=== PATIENT | female | born 1945 | race Caucasian/White ===

== ENCOUNTER 2019-02-18 00:22 | Inpatient (IN) | payer OTHER ==
[~2019-02-18] VITALS: Ht 170.2 cm; Wt 111.8 kg
[2019-02-18] VITALS (7 sets, daily range): BP systolic 135–153; BP diastolic 63–76
[2019-02-18 00:49] LABS: BASOPHILS % (AUTO) 0 % (0-10); EOSINOPHILS # (AUTO) 0.3 10^3/uL (0.0-0.3); EOSINOPHILS % (AUTO) 5 % (0-10); HEMATOCRIT 34 % (35-52); LYMPHOCYTES # (AUTO) 1.1 X 10^3 (1.0-4.0); LYMPHOCYTES % (AUTO) 17 % (12-44); MEAN CORPUSCULAR HEMOGLOBIN 30 PG (25-34); MEAN CORPUSCULAR HGB CONC 32 G/DL (32-36); MEAN CORPUSCULAR VOLUME 93 FL (80-99); MEAN PLATELET VOLUME 10.8 FL (7.4-10.4); MONOCYTES # (AUTO) 0.4 X 10^3 (0.0-1.0); MONOCYTES % (AUTO) 6 % (0-12); NEUTROPHILS # (AUTO) 4.6 X 10^3 (1.8-7.8); NEUTROPHILS % (AUTO) 73 % (42-75); PLATELET COUNT 120 10^3/uL (130-400); RED CELL DISTRIBUTION WIDTH 13.5 % (10.0-14.5); WHITE BLOOD COUNT 6.4 10^3/uL (4.3-11.0)
[2019-02-18 00:59] LABS: INR 1.1 (0.8-1.4); PROTHROMBIN TIME PATIENT 14.3 SEC (12.2-14.7)
[2019-02-18 01:08] LABS: ALBUMIN 3.7 GM/DL (3.2-4.5); BILIRUBIN,TOTAL 0.4 MG/DL (0.1-1.0); CALCIUM 8.7 MG/DL (8.5-10.1); CREATININE SERUM 1.23 MG/DL (0.60-1.30); MAGNESIUM 1.3 MG/DL (1.6-2.4); TOTAL PROTEIN 6.4 GM/DL (6.4-8.2)
[2019-02-18] MEDS ORDERED: AZITHROMYCIN INJECTION 500 MG in NS (IVPB) 250 ML IV ONE (01:15)
[2019-02-18] MEDS ORDERED: cefTRIAXone FOR IV USE 1,000 MG in WATER (STERILE) FOR INJECTION 10 ML IV ONE (01:15)
[2019-02-18] MEDS ORDERED: NS IV 1000 ML 1,000 ML IV SCH (01:29)
[2019-02-18] MEDS ORDERED: inSUlin (REGULAR) HUMAN 1 UNIT/0.01 ML (CHARGE PER UNIT) SC ONE (01:30)
[2019-02-18 01:31] LABS: BILIRUBIN,URINE NEGATIVE (NEGATIVE); CLARITY,URINE CLEAR; COLOR,URINE AMBER; GLUCOSE, URINE (UA) 4+ (NEGATIVE); KETONES,URINE 1+ (NEGATIVE); LEUKOCYTE ESTERASE ,URINE 2+ (NEGATIVE); NITRITE,URINE NEGATIVE (NEGATIVE); PH,URINE 8 (5-9); PROTEIN,URINE 1+ (NEGATIVE)
[2019-02-18 01:44] LABS: BACTERIA,URINE TRACE /HPF; RBC,URINE 50-100 /HPF; SQUAMOUS EPITHELIAL CELL,UR 0-2 /HPF; WBC,URINE 0-2 /HPF
[2019-02-18] MEDS ORDERED: MAGNESIUM OXIDE (MAG-OX)400 MG TAB PO ONE (02:00)
--- NOTE | 2019-02-18 03:30 | NUR ---
TRAMAINE CHURCH admitted to room 428-1, with an admitting diagnosis of pneumonia,copd, insulin dependent diabetes-uncontrolled,hypomagnesemic, on 02/18/19 from AM via wheelchair, accompanied by staff.TRAMAINE CHURCH introduced to surroundings, call light, bed controls, phone, TV, temperature control, lights, meal times, smoking policy, visitor policy, side rail policy, bathrooms and showers. Patient Rights given to patient in the handbook. TRAMAINE CHURCH verbalizes understanding that [facility] is not responsible for the loss or damage to any personal effects or valuables that are kept in the patients posession during their hospitalization.
[2019-02-18] MEDS ORDERED: methylPREDNISolone 125 MG (Solu-MEDROL) VIAL IVP SCH (04:05)
[2019-02-18] MEDS ORDERED: ACETAMINOPHEN 500 MG TAB (TYLENOL) PO PRN (04:15)
[2019-02-18] MEDS: NS IV 1000 ML 1,000 ML IV SCH ×2 (05:00→17:43)
[2019-02-18 05:33] LABS: BASOPHILS % (AUTO) 0 % (0-10); EOSINOPHILS # (AUTO) 0.3 10^3/uL (0.0-0.3); EOSINOPHILS % (AUTO) 5 % (0-10); HEMATOCRIT 33 % (35-52); HEMOGLOBIN 10.5 G/DL (11.5-16.0); LYMPHOCYTES # (AUTO) 1.5 X 10^3 (1.0-4.0); LYMPHOCYTES % (AUTO) 26 % (12-44); MEAN CORPUSCULAR HEMOGLOBIN 30 PG (25-34); MEAN CORPUSCULAR HGB CONC 32 G/DL (32-36); MEAN CORPUSCULAR VOLUME 93 FL (80-99); MEAN PLATELET VOLUME 10.7 FL (7.4-10.4); MONOCYTES # (AUTO) 0.5 X 10^3 (0.0-1.0); MONOCYTES % (AUTO) 8 % (0-12); NEUTROPHILS # (AUTO) 3.5 X 10^3 (1.8-7.8); NEUTROPHILS % (AUTO) 61 % (42-75); PLATELET COUNT 119 10^3/uL (130-400); RED CELL DISTRIBUTION WIDTH 13.7 % (10.0-14.5); WHITE BLOOD COUNT 5.8 10^3/uL (4.3-11.0)
[2019-02-18 05:55] LABS: ALBUMIN 3.6 GM/DL (3.2-4.5); BILIRUBIN,TOTAL 0.3 MG/DL (0.1-1.0); CALCIUM 8.3 MG/DL (8.5-10.1); POTASSIUM 3.6 MMOL/L (3.6-5.0)
[2019-02-18] MEDS ORDERED: inSUlin ASPART (NovoLOG) 1 UNIT/0.01 ML (CHARGE PER UNIT) SC SCH (06:00)
--- NOTE | 2019-02-18 06:38 | Diagnostic Imaging Report ---
INDICATION: Shortness of breath. Hyperglycemia. COMPARISON: None FINDINGS: Frontal and lateral views of the chest demonstrate questionable developing infiltrate in the right medial lung base. Left lung is clear. The heart is slightly enlarged. There is no pneumothorax or effusion. Osseous structures are normal. IMPRESSION: Questionable developing infiltrate right lung base. Follow-up recommended. Dictated by: Dictated on workstation # [id number]
[2019-02-18] MEDS: RT-ALBUTEROL/IPRATROPIUM 3 ML (DUONEB) VIAL INH SCH ×4 (07:40→23:00)
[2019-02-18] MEDS ORDERED: FURO20TA4 PO (08:12)
[2019-02-18] MEDS ORDERED: INSU100V37 SQ (08:12)
[2019-02-18] MEDS ORDERED: PRAV20TA3 PO (08:12)
[2019-02-18] MEDS ORDERED: HYDR-3812 PO (08:12)
[2019-02-18] MEDS ORDERED: PREG200C PO (08:12)
[2019-02-18] MEDS ORDERED: PAMI30VI8 SQ (08:12)
[2019-02-18] MEDS ORDERED: RANI-609 PO (08:12)
[2019-02-18] MEDS ORDERED: DULA1.5P2 SQ (08:12)
[2019-02-18] MEDS ORDERED: TRAZ150T72 PO (08:12)
[2019-02-18] MEDS ORDERED: LOSA100T57 PO (08:12)
[2019-02-18] MEDS ORDERED: ASPI-999 PO (08:12)
[2019-02-18] MEDS ORDERED: METF-399 PO (08:12)
--- NOTE | 2019-02-18 08:16 | ED General ---
General Chief Complaint: Glucose Problems Stated Complaint: HYPOMAGNESEMIA; PNEUMONIA; COPD; IDDM-UNCONTROLLED Nursing Sepsis Screen: No Definite Risk Source of Information: Patient (SOMEWHAT LIMITED HISTORIAN, IS ), EMS, Spouse History of Present Illness Date Seen by Provider: Feb 18, 2019 Time Seen by Provider: 00:25 Initial Comments PT ARRIVES VIA EMS PT WITH MULTIPLE COMPLAINTS PT STATES SHE HAS BEEN "OUT OF TOWN" ALL DAY STATES SHE BEGAN "NOT FEELING WELL" AROUND 1700 TODAY. STATES SHE HAS JUST BEEN WEAK AND TIRED AND NO ENERGY ALL DAY. TONIGHT SHE SAT DOWN ON THE COUCH AND SLID SLOWLY OFF THE EDGE, AND THEN WAS NOT ABLE TO GET BACK UP, DUE TO WEAKNESS. DENIES ANY INJURY OR PAIN ANYWHERE EMS CHECKED PT'S BLOOD GLUCOSE AND IT WAS 422 PT IS DIABETIC, BUT HAS NOT CHECKED HER BLOOD GLUCOSE ALL DAY TODAY. PT STATES SHE DID TAKE HER INSULIN THIS AM PT STATES SHE HAS COPD AND IS ON HOME O2 CONTINUOUSLY AT 3L/NC PT INITIALLY STATES SHE HAS NOT BEEN SHORT OF BREATH TODAY, AND INITIALLY STATED SHE HAD NOT HAD TO USE HER INHALER OR NEBULIZER ALL DAY, THEN LATER CHANGES HER STORY AND STATES THAT SHE HAS BEEN SHORT OF BREATH TODAY AND HAS USED HER NEBULIZER X 2 TODAY. EMS NOTED THAT HER TEMP WAS 100.9--PT WAS UNAWARE OF FEVER PT DOES STATES SHE HAS HAD A NON-PRODUCTIVE COUGH AND NASAL AND CHEST CONGESTION FOR THE LAST FEW DAYS NO CHEST PAIN NO SWELLING IN LEGS/ FEET OR PAIN IN CALVES. NO PALPITATIONS NO DIZZINESS NO SYNCOPE PT AND ARE HERE VISITING FROM [place]--HAVE BEEN HERE SINCE TUESDAY, AND FLEW HERE. THEY HAVE BEEN STAYING WITH THEIR SON, WHO CURRENTLY IS BEING TREATED FOR PNEUMONIA. 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 THEY ARE PLANNING ON GOING BACK HOME TO [place] ON TUESDAY. Allergies and Home Medications Allergies Coded Allergies: iodine (Verified Allergy, Unknown, 02/18/19) latex (Verified Allergy, Unknown, 02/18/19) Patient Home Medication List Home Medication List Reviewed: Yes Review of Systems Review of Systems Constitutional: see HPI; No chills, No diaphoresis, No dizziness; fever, malaise, weakness EENTM: nose congestion Respiratory: see HPI, cough, orthopnea; No phlegm; short of breath, wheezing Cardiovascular: No chest pain; edema (CHRONIC/STABLE); No palpitations, No syncope, No vascular heart diseas Gastrointestinal: no symptoms reported Genitourinary: no symptoms reported Musculoskeletal: no symptoms reported Skin: no symptoms reported Psychiatric/Neurological: No Symptoms Reported Hematologic/Lymphatic: No Symptoms Reported Immunological/Allergic: no symptoms reported Past Fntluhx-Zquukq-Itzkhf Hx Patient Social History Alcohol Use: Denies Use Recreational Drug Use: No Smoking Status: Former Smoker (1 04/19 PPD, QUIT 20 YEARS AGO, PER PT ON 02/18/19) Type Used: Cigarettes Recent Foreign Travel: No Contact w/Someone Who Travel: No Recent Infectious Disease Expo: No Immunizations Up To Date Date of Pneumonia Vaccine: Feb 19, 2016 Past Medical History Surgeries: Yes (LEFT TOTAL KNEE REPLACEMENT; MULTIPLE BACK SURGERIES; HYST/BSO; CHOLECYSTECTOMY) Gallbladder, Hysterectomy, Oophorectomy, Orthopedic Respiratory: Yes Sleep Apnea, COPD Currently Using CPAP: Yes Currently Using BIPAP: No Cardiac: Yes Chronic Edema/Swelling, High Cholesterol, Hypertension 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: Hysterectomy, Menopausal Genitourinary: Yes Bladder Infection Gastrointestinal: Yes (S/P [place]) Gastroesophageal Reflux, Gall Bladder Disease Musculoskeletal: Yes (MULTIPLE BACK SURGERIES AND INJECTIONS IN BACK) Arthritis, Chronic Back Pain Endocrine: Yes Diabetes, Insulin dep HEENT: No Cancer: No Psychosocial: Yes Anxiety, Depression Integumentary: No Blood Disorders: No Physical Exam Vital Signs Vital Signs - First Documented 02/18/19 02/18/19 02/18/19 03:35 04:04 04:57 Temp 36.6 Pulse 72 Resp 20 B/P (MAP) 135/63 (87) Pulse Ox 94 O2 Delivery Nasal Cannula O2 Flow Rate 3.00 FiO2 28 Capillary Refill : Height, Weight, BMI Height: '" Weight: lbs. oz. kg; 39.00 BMI Method: General Appearance: No Apparent Distress, WD/WN, Obese HEENT: PERRL/EOMI, Other (NASAL MUCOSAL EDEMA AND CLEAR RHINORRHEA) Neck: Full Range of Motion, Normal Inspection, Non Tender, Supple; No Carotid Bruit, No JVD Respiratory: Normal Breath Sounds, No Accessory Muscle Use, No Respiratory Distress Cardiovascular: Regular Rate, Rhythm, No JVD, No Murmur, Normal Peripheral Pulses Gastrointestinal: Non Tender, Soft Back: No CVA Tenderness Extremity: Normal Capillary Refill, Normal Range of Motion, Non Tender, No Calf Tenderness, Pedal Edema (1+ EDEMA BILATERALLY) Neurologic/Psychiatric: Alert, Oriented x3, No Motor/Sensory Deficits, Normal Mood/Affect, rides supervisor II-XII Norm as Tested Skin: Normal Color, Warm/Dry; No Rash Focused Exam Lactate Level 02/18/19 00:35: Lactic Acid Level 2.30*H 02/18/19 01:55: Lactic Acid Level 2.29*H Progress/Results/Core Measures Suspected Sepsis Infection Criteria Present: Documented Infection Sepsis Screen: No Definite Risk SIRS Temperature: Pulse: 64 Respiratory Rate: 20 Laboratory Tests 02/18/19 00:35: White Blood Count 6.4 02/18/19 05:27: White Blood Count 5.8 Blood Pressure 135 /63 Mean: 87 02/18/19 00:35: Lactic Acid Level 2.30*H 02/18/19 01:55: Lactic Acid Level 2.29*H Laboratory Tests 02/18/19 00:35: Creatinine 1.23, INR Comment 1.1, Platelet Count 120L, Total Bilirubin 0.4 02/18/19 05:27: Creatinine 1.00, Platelet Count 119L, Total Bilirubin 0.3 Results/Orders Lab Results Laboratory Tests Test 02/18/19 00:35 02/18/19 00:57 02/18/19 01:19 02/18/19 01:47 Range/Units White Blood Count 6.4 4.3-11.0 10^3/uL Red Blood Count 3.68 L 4.35-5.85 10^6/uL Hemoglobin 11.0 L 11.5-16.0 G/DL Hematocrit 34 L 35-52 % Mean Corpuscular Volume 93 80-99 FL Mean Corpuscular Hemoglobin 30 25-34 PG Mean Corpuscular Hemoglobin Concent 32 32-36 G/DL Red Cell Distribution Width 13.5 10.0-14.5 % Platelet Count 120 L 130-400 10^3/uL Mean Platelet Volume 10.8 H 7.4-10.4 FL Neutrophils (%) (Auto) 73 42-75 % Lymphocytes (%) (Auto) 17 12-44 % Monocytes (%) (Auto) 6 0-12 % Eosinophils (%) (Auto) 5 0-10 % Basophils (%) (Auto) 0 0-10 % Neutrophils # (Auto) 4.6 1.8-7.8 X 10^3 Lymphocytes # (Auto) 1.1 1.0-4.0 X 10^3 Monocytes # (Auto) 0.4 0.0-1.0 X 10^3 Eosinophils # (Auto) 0.3 0.0-0.3 10^3/uL Basophils # (Auto) 0.0 0.0-0.1 10^3/uL Prothrombin Time 14.3 12.2-14.7 SEC INR Comment 1.1 0.8-1.4 Activated Partial Thromboplast Time 28 24-35 SEC Sodium Level 139 135-145 MMOL/L Potassium Level 4.0 3.6-5.0 MMOL/L Chloride Level 98 98-107 MMOL/L Carbon Dioxide Level 28 21-32 MMOL/L Anion Gap 13 5-14 MMOL/L Blood Urea Nitrogen 19 H 7-18 MG/DL Creatinine 1.23 0.60-1.30 MG/DL Estimat Glomerular Filtration Rate 42 BUN/Creatinine Ratio 15 Glucose Level 376 H 70-105 MG/DL Lactic Acid Level 2.30 *H 0.50-2.00 MMOL/L Calcium Level 8.7 8.5-10.1 MG/DL Corrected Calcium 8.9 8.5-10.1 MG/DL Magnesium Level 1.3 L 1.6-2.4 MG/DL Total Bilirubin 0.4 0.1-1.0 MG/DL Aspartate Amino Transf (AST/SGOT) 25 5-34 U/L Alanine Aminotransferase (ALT/SGPT) 19 0-55 U/L Alkaline Phosphatase 86 40-136 U/L B-Type Natriuretic Peptide 63.6 <100.0 PG/ML Total Protein 6.4 6.4-8.2 GM/DL Albumin 3.7 3.2-4.5 GM/DL Group A Streptococcus Screen NEGATIVE NEGATIVE Glucometer 339 H 183 H 70-110 MG/DL Urine Color RAQUEL H Urine Clarity CLEAR Urine pH 8 5-9 Urine Specific [place] 1.010 L 1.016-1.022 Urine Protein 1+ H NEGATIVE Urine Glucose (UA) 4+ H NEGATIVE Urine Ketones 1+ H NEGATIVE Urine Nitrite NEGATIVE NEGATIVE Urine Bilirubin NEGATIVE NEGATIVE Urine Urobilinogen NORMAL NORMAL MG/DL Urine Leukocyte Esterase 2+ H NEGATIVE Urine RBC (Auto) 5+ H NEGATIVE Urine RBC 50-100 H /HPF Urine WBC 0-2 /HPF Urine Squamous Epithelial Cells 0-2 /HPF Urine Crystals NONE /LPF Urine Bacteria TRACE /HPF Urine Casts NONE /LPF Urine Mucus NEGATIVE /LPF Urine Culture Indicated CULTURE PENDING Test 02/18/19 01:55 02/18/19 05:27 Range/Units Lactic Acid Level 2.29 *H 0.50-2.00 MMOL/L White Blood Count 5.8 4.3-11.0 10^3/uL Red Blood Count 3.52 L 4.35-5.85 10^6/uL Hemoglobin 10.5 L 11.5-16.0 G/DL Hematocrit 33 L 35-52 % Mean Corpuscular Volume 93 80-99 FL Mean Corpuscular Hemoglobin 30 25-34 PG Mean Corpuscular Hemoglobin Concent 32 32-36 G/DL Red Cell Distribution Width 13.7 10.0-14.5 % Platelet Count 119 L 130-400 10^3/uL Mean Platelet Volume 10.7 H 7.4-10.4 FL Neutrophils (%) (Auto) 61 42-75 % Lymphocytes (%) (Auto) 26 12-44 % Monocytes (%) (Auto) 8 0-12 % Eosinophils (%) (Auto) 5 0-10 % Basophils (%) (Auto) 0 0-10 % Neutrophils # (Auto) 3.5 1.8-7.8 X 10^3 Lymphocytes # (Auto) 1.5 1.0-4.0 X 10^3 Monocytes # (Auto) 0.5 0.0-1.0 X 10^3 Eosinophils # (Auto) 0.3 0.0-0.3 10^3/uL Basophils # (Auto) 0.0 0.0-0.1 10^3/uL Sodium Level 141 135-145 MMOL/L Potassium Level 3.6 3.6-5.0 MMOL/L Chloride Level 102 98-107 MMOL/L Carbon Dioxide Level 28 21-32 MMOL/L Anion Gap 11 5-14 MMOL/L Blood Urea Nitrogen 15 7-18 MG/DL Creatinine 1.00 0.60-1.30 MG/DL Estimat Glomerular Filtration Rate 54 BUN/Creatinine Ratio 15 Glucose Level 211 H 70-105 MG/DL Calcium Level 8.3 L 8.5-10.1 MG/DL Corrected Calcium 8.6 8.5-10.1 MG/DL Total Bilirubin 0.3 0.1-1.0 MG/DL Aspartate Amino Transf (AST/SGOT) 22 5-34 U/L Alanine Aminotransferase (ALT/SGPT) 18 0-55 U/L Alkaline Phosphatase 71 40-136 U/L Total Protein 6.0 L 6.4-8.2 GM/DL Albumin 3.6 3.2-4.5 GM/DL Micro Results Microbiology 02/18/19 Influenza Types A,B Antigen (SNOW) - Final, Complete My Orders Orders - GIL CRAWLEY DO Accucheck Stat ONCE (02/18/19 00:36) Ed Iv/Invasive Line Start (02/18/19 00:36) Ekg Tracing (02/18/19 00:36) O2 (02/18/19 00:36) Monitor-Rhythm Ecg Trace Only (02/18/19:36) Chest Pa/Lat (2 View) (02/18/19:36) BNP (02/18/19 00:36) Cbc With Automated Diff (02/18/19 00:36) Comprehensive Metabolic Panel (02/18/19 00:36) Lactic Acid Analyzer (02/18/19 00:36) Magnesium (02/18/19:36) Protime With Inr (02/18/19 00:36) Partial Thromboplastin Time (02/18/19 00:36) Rapid Strep A Screen (02/18/19 00:36) Ua Culture If Indicated (02/18/19 00:36) Blood Culture (02/18/19 00:36) Influenza A And B Antigens (02/18/19 00:36) Sputum Culture (02/18/19 00:36) Urine Culture (02/18/19 00:36) Ed Iv/Invasive Line Start (02/18/19 00:36) Ed Iv/Invasive Line Start (02/18/19 00:36) Vital Signs Adult Sepsis Patie Q15M (02/18/19 00:36) O2 (02/18/19 00:36) Remove Rings In Anticipation O (02/18/19 00:36) Ceftriaxone For Iv Use (Rocephin For I (02/18/19 01:15) Azithromycin Injection (Zithromax Inject (02/18/19 01:15) Ed Iv/Invasive Line Start (02/18/19 01:29) Ns Iv 1000 Ml (Sodium Chloride 0.9%) (02/18/19 01:29) Insulin (Regular) Human (Humulin R (Per (02/18/19 01:30) Magnesium Oxide Tablet (Mag Ox Tablet) (02/18/19 02:00) Accucheck Stat ONCE (02/18/19 01:56) Medications Given in ED Current Medications Medications Dose Ordered Sig/Davie Route Start Time Stop Time Status Last Admin Dose Admin Azithromycin 500 mg/Sodium Chloride 250 ml @ 250 mls/hr ONCE ONCE IV 02/18/19 01:15 02/18/19 02:14 DC 02/18/19 01:32 250 MLS/HR Ceftriaxone Sodium 1000 mg/ Sterile Water 10 ml @ 200 mls/hr ONCE ONCE IV 02/18/19 01:15 02/18/19 01:18 DC 02/18/19 01:32 200 MLS/HR Vital Signs/I&O 02/18/19 02/18/19 02/18/19 02/18/19 03:35 04:04 04:05 04:57 Temp 36.6 36.6 36.6 Pulse 72 72 72 Resp 20 20 B/P (MAP) 135/63 (87) 135/63 Pulse Ox 94 94 94 O2 Delivery Nasal Cannula Nasal Cannula Nasal Cannula O2 Flow Rate 3.00 3.00 3.00 FiO2 28 02/18/19 02/18/19 02/18/19 04:59 07:00 07:41 Pulse 73 64 O2 Delivery Nasal Cannula O2 Flow Rate 3.00 Capillary Refill : Blood Pressure Mean: 87 POS Point of Care Testing Finger Stick Blood Glucose: 211 Progress Note : Progress Note UNEVENTFUL ER STAY TIMES ON DOCUMENTS/DOCUMENTATION DIFFICULT DUE TO TIME CHANGE DURING PT'S ER STAY. ECG Initial ECG Impression Date: Feb 18, 2019 Initial ECG Impression Time: 01:32 Initial ECG Rate: 80 Initial ECG Rhythm: Normal Sinus Initial ECG Impression: Nonspecific Changes (RBBB AND LAFB) Initial ECG Comparisson: No Previous ECG Available Diagnostic Imaging Comments CXR--RLL INFILTRATE, PENDING RADIOLOGIST REVIEW Reviewed: Reviewed by [place] Departure Communication (Admissions) 0125--SPOKE WITH DR. ERICKSON, HOSPITALIST, ACCEPTS PT FOR ADMIT. Impression Primary Impression: RLL pneumonia Additional Impressions: COPD (chronic obstructive pulmonary disease) Diabetes mellitus, insulin dependent (IDDM), uncontrolled UTI (urinary tract infection) Hypomagnesemia Disposition: ADMITTED INPATIENT Condition: Improved Admissions Decision to Admit Reason: Admit from ER (General) Decision to Admit/Date: Feb 18, 2019 Time/Decision to Admit Time: 01:25 GIL CRAWLEY DO Feb 18, 2019 08:16 POS
[2019-02-18] MEDS ORDERED: FLUO20TA28 PO (08:18)
[2019-02-18] MEDS: MAGNESIUM 1 GM/100 ML IVPB 100 ML IV SCH ×4 (08:56→15:47)
--- NOTE | 2019-02-18 12:00 | NUR ---
BLOOD SUGAR 479, DR ERICKSON NOTIFIED AND ORDERS GIVEN TO CHANGE SSI TO C AND GIVE LEVIMER 60 UNITS
[2019-02-18] MEDS: inSUlin ASPART (NovoLOG) 1 UNIT/0.01 ML (CHARGE PER UNIT) SC SCH ×4 (12:02→21:34)
[2019-02-18] MEDS ORDERED: ONDANSETRON 4 MG (ZOFRAN) ORAL DISSOLVE TAB PO PRN (15:15)
[2019-02-18] MEDS ORDERED: ACETAMINOPHEN 325 MG TABLET PO PRN (15:15)
[2019-02-18] MEDS ORDERED: cefTRIAXone FOR IV USE 2,000 MG in WATER (STERILE) FOR INJECTION 20 ML IV SCH (15:15)
[2019-02-18] MEDS ORDERED: ANTACID SUSP 30 ML UDC (MYLANTA) PO PRN (15:15)
[2019-02-18] MEDS ORDERED: POLYETHYLENE GLYCOL 17 GM (MIRALAX) PACK PO PRN (15:15)
[2019-02-18] MEDS ORDERED: BISACODYL 10 MG SUPP (DULCOLAX) PR PRN (15:15)
[2019-02-18] MEDS ORDERED: MELATONIN 3 MG TABLET PO PRN (15:15)
--- NOTE | 2019-02-18 15:25 | History & Physical-Hospitalist ---
History of Present Illness HPI/Chief Complaint Sandra Forbes is a 74yoF with PMH HTN, T2DM, HLD, GERD, COPD, obesity, who presented with weakness and shortness of breath. She reports having a cough with sputum production. She reports no fevers or chills. She denies chest pain. She denies abdominal pain, nausea, vomiting, diarrhea, dysuria. Source: patient, family Exam Limitations: no limitations Date Seen 02/18/19 Time Seen by a Provider: 10:30 Attending Physician Prisca Erickson MD PCP Referring Physician Date of Admission Feb 18, 2019 at 01:25 Home Medications & Allergies Home Medications Reviewed patient Home Medication Reconciliation performed by pharmacy medication reconciliations automotive maintenance technician and/or nursing. Patients Allergies have been reviewed. Allergies Allergies Coded Allergies iodine (Verified Allergy, Unknown, 02/18/19) latex (Verified Allergy, Unknown, 02/18/19) Past Towqbju-Nyzsqk-Qyxjub Hx Past Med/Social Hx: Reviewed Nursing Past Med/Soc Hx Patient Social History Alcohol Use: Denies Use Recreational Drug Use: No Smoking Status: Former Smoker (1 /2 PPD, QUIT 20 YEARS AGO, PER PT ON 02/18/19) Type Used: Cigarettes Recent Foreign Travel: No Contact w/other who traveled: No Recent Infectious Disease Expo: No Immunizations Up To Date Date of Pneumonia Vaccine: Feb 19, 2016 Past Medical History Surgeries: Gallbladder, Hysterectomy, Oophorectomy, Orthopedic Currently Using CPAP: Yes Currently Using BIPAP: No Cardiac: Chronic Edema/Swelling, High Cholesterol, Hypertension Hysterectomy, Menopausal Genitourinary: Bladder Infection Gastrointestinal: Gastroesophageal Reflux, Gall Bladder Disease Musculoskeletal: Arthritis, Chronic Back Pain Endocrine: Diabetes, Insulin dep Psychosocial: Anxiety, Depression History of Blood Disorders: No Review of Systems Constitutional: weakness EENTM: no symptoms reported Respiratory: cough, phlegm, short of breath Cardiovascular: no symptoms reported Gastrointestinal: no symptoms reported Genitourinary: no symptoms reported Musculoskeletal: no symptoms reported Skin: no symptoms reported Psychiatric/Neurological: No Symptoms Reported Physical Exam Physical Exam Vital Signs Vital Signs - First Documented 02/18/19 02/18/19 02/18/19 03:35 04:04 04:57 Temp 36.6 Pulse 72 Resp 20 B/P (MAP) 135/63 (87) Pulse Ox 94 O2 Delivery Nasal Cannula O2 Flow Rate 3.00 FiO2 28 Capillary Refill : Height, Weight, BMI Height: '" Weight: lbs. oz. kg; 39.00 BMI Method: General Appearance: No Apparent Distress, WD/WN, Obese HEENT: PERRL/EOMI, Pharynx Normal Neck: Normal Inspection, Supple Respiratory: Lungs Clear, Normal Breath Sounds, No Respiratory Distress Cardiovascular: Regular Rate, Rhythm, No Edema, No Murmur Gastrointestinal: Normal Bowel Sounds, Non Tender, Soft Extremity: Normal Inspection, Non Tender, Pedal Edema Neurologic/Psychiatric: Alert, Oriented x3, No Motor/Sensory Deficits, Normal Mood/Affect Skin: Normal Color, Warm/Dry Lymphatic: No Adenopathy Results Results/Procedures Labs Laboratory Tests 02/18/19 00:35 02/18/19 05:27 Patient resulted labs reviewed. Imaging: Reviewed Imaging Report Assessment/Plan Admission Diagnosis Community acquired pneumonia Admission Status: Inpatient Order (span 2 midnights) Reason for Inpatient Admission: Pneumonia requiring IV antibiotics Assessment and Plan Community acquired pneumonia Urinary tract infection -CXR revealed RLL PNA -UA indicative of UTI -Urine culture pending -Add on procalcitonin -Not septic -Started on Rocephin and Azithromycin -Increase to Rocephin 2 g daily -NS 100 ml/hr T2DM Steroid induced hyperglycemia -Discontinue steroids -Decrease to Levemir 60 units daily -Novolog 5 units with meals -Sliding scale C Lactic acidosis -Mild, continue IV fluids Hypomagnesemia -Monitor and replace as needed HTN -Continue home meds GERD -Famotidine substituted for Ranitidine HLD -Hold statin COPD without exacerbation -MAT protocol DVT Prophylaxis: Lovenox Diagnosis/Problems Diagnosis/Problems (1) RLL pneumonia Status: Acute (2) COPD without exacerbation Status: Chronic (3) Hypomagnesemia Status: Acute (4) UTI (urinary tract infection) Status: Acute (5) Diabetes mellitus, insulin dependent (IDDM), uncontrolled Status: Chronic Clinical Quality Measures DVT/VTE Risk/Contraindication: Risk Factor Score Per Nursin RFS Level Per Nursing on Admit: 4+=Very High PRISCA ERICKSON MD Feb 18, 2019 15:25 POS
[2019-02-18] MEDS ORDERED: ENOXAPARIN 40 MG/0.4 ML (LOVENOX) SYR SC SCH (16:00)
--- NOTE | 2019-02-18 16:38 | NUR ---
DR ERICKSON NOTIFIED OF 473 BLOOD SUGAR AND ORDER GIVEN TO GIVE 17 UNITS PERR SSI C
[2019-02-18] MEDS ORDERED: traZODone 150 MG (DESYREL) TABLET PO SCH (21:00)
[2019-02-18] MEDS: SENNOSIDES 8.6 MG (SENOKOT) TAB PO SCH (21:34)
[2019-02-18] MEDS: FAMOTIDINE 20 MG (PEPCID) TABLET PO SCH (21:34)
[2019-02-18] MEDS: PREGABALIN 100 MG (LYRICA) CAPSULE PO SCH (21:34)
[2019-02-18] MEDS: DOCUSATE SODIUM 100 MG (COLACE) CAP PO SCH (21:34)
--- NOTE | 2019-02-18 21:37 | NUR ---
DR ERICKSON NOTIFIED OF 429 BLOOD SUGAR AND ORDER GIVEN TO GIVE 17 UNITS PERR SSI C
[2019-02-19 00:29] VITALS: BP 143/70
[2019-02-19] MEDS: NS IV 1000 ML 1,000 ML IV SCH ×2 (00:35→06:05)
[2019-02-19] MEDS: RT-ALBUTEROL/IPRATROPIUM 3 ML (DUONEB) VIAL INH SCH ×4 (00:39→11:21)
[2019-02-19] MEDS ORDERED: cefTRIAXone FOR IV USE 1,000 MG in WATER (STERILE) FOR INJECTION 10 ML IV SCH (01:00)
[2019-02-19 04:00] VITALS: BP 140/64
[2019-02-19 05:57] LABS: CALCIUM 8.5 MG/DL (8.5-10.1); CREATININE SERUM 1.03 MG/DL (0.60-1.30); MAGNESIUM 2.5 MG/DL (1.6-2.4); POTASSIUM 4.8 MMOL/L (3.6-5.0)
[2019-02-19] MEDS: inSUlin ASPART (NovoLOG) 1 UNIT/0.01 ML (CHARGE PER UNIT) SC SCH ×4 (05:59→11:38)
--- NOTE | 2019-02-19 06:19 | NUR ---
LACTIC ACID 2.15. DR. ERICKSON NOTIFIED. NO NEW ORDERS.
[2019-02-19 08:00] VITALS: BP 145/69
[2019-02-19] MEDS ORDERED: PHARMACY TO DOSE SQ SCH (09:00)
[2019-02-19] MEDS ORDERED: ASPIRIN 81 MG CHEW (CHILDREN'S ASA) PO SCH (09:00)
[2019-02-19] MEDS ORDERED: FLUoxetine HCL 20 MG (PROzac) CAP PO SCH (09:00)
[2019-02-19] MEDS ORDERED: AZITHROMYCIN 250 MG TAB (ZITHROMAX) PO SCH (09:00)
[2019-02-19] MEDS ORDERED: LOSARTAN 100 MG (COZAAR) TABLET PO SCH (09:00)
[2019-02-19] MEDS: FAMOTIDINE 20 MG (PEPCID) TABLET PO SCH (09:29)
[2019-02-19] MEDS: DOCUSATE SODIUM 100 MG (COLACE) CAP PO SCH (09:29)
[2019-02-19] MEDS: PREGABALIN 100 MG (LYRICA) CAPSULE PO SCH (09:29)
[2019-02-19] MEDS: SENNOSIDES 8.6 MG (SENOKOT) TAB PO SCH (09:30)
--- NOTE | 2019-02-19 10:03 | Physical Therapy Evaluation ---
PT Evaluation-General Medical Diagnosis Admission Date Feb 18, 2019 at 01:25 Medical Diagnosis: hypomagnesium, pneumonia, COPD Onset Date: Feb 18, 2019 Therapy Diagnosis Therapy Diagnosis: weakness Precautions Precautions/Isolations: Contact Isolation Weight Bear Status Right Lower Extremity: Right Weight Bearing/Tolerated Left Lower Extremity: Left Weight Bearing/Tolerated Referral Physician: Sourav Reason for Referral: Evaluation/Treatment Medical History Pertinent Medical History: COPD, DM Current History EMS secondary to weakness and SOB. Patient is from out of town, visiting relatives. Reviewed History: Yes Social History Home: Assisted Living Current Living Status: Significant Other Prior Prior Level of Function SCALE: Activities may be completed with or without assistive devices. 4-Xmjhfoexnw-wvbjntr completes the activity by him/herself with no assistance from a helper. 5-Set-up or Clean-up Assistance-helper sets up or cleans up; patient completes activity. Edmond assists only prior to or following the activity. 4-Supervision or Touching Assistance-helper provides verbal cues and/or touching/steadying and/or contact guard assistance as patient completes activity. Assistance may be provided throughout the activity or intermittently. 3-Partial/Moderate Assistance-helper does LESS THAN HALF the effort. Edmond lifts, holds or supports trunk or limbs, but provides less than half the effort. 2-Substantial/Maximal Assistance-helper does MORE THAN HALF the effort. Edmond lifts or holds trunk or limbs and provides more than half the effort. 7-Llfijaxcc-suimqw does ALL the effort. Patient does none of the effort to complete the activity. Or, the assistance of 2 or more helpers is required for the patient to complete the activity. If activity was not attempted, code reason: 7-Patient Refused. 9-Not Applicable-not attempted and the patient did not perform the activity before the current illness, exacerbation or injury. 10-Not Attempted due to Environmental Limitations-(lack of equipment, weather restraints, etc.). 88-Not Attempted due to Medical Conditions or Safety Concerns. Bed Mobility: 6 Transfers (B,C,W/C): 6 Gait: 6 Indoor Mobility (Ambulation): Independent Prior Devices Use: Walker (4 wheels) PT Evaluation-Current Subjective Patient reports she is doing well and is ready to leave. States she is supposed to fly home to [place] tomorrow. Patient has been up and about within room and walking in hallway. Pain Numeric Pain Scale: 0-No Pain Location: No Pain Reported Objective Patient Orientation: Normal For Age Problem Solving: Good Attachments: Oxygen (3L), IV ROM/Strength ROM Lower Extremities WFL Strength Lower Extremities Grossly 4/5 Integumentary/Posture Integumentary See nursing notes Bowel Incontinence: No Bladder Incontinence: No Posture WFL Neuromuscular (Tone, Coordination, Reflexes) grossly intact Sensory Vision: Wears Glasses Hearing: Functional Transfers Sit to Stand (QC): 6 Gait Does the Patient Walk?: Yes Mode of Locomotion: Walk Anticipated Mode of Locomotion: Walk Walk 10 feet (QC): 6 Walk 50 ft with 2 Turns(QC): 6 Walk 150 ft (QC): 6 Distance: 400' Gait Assistive Device: Walker 4 Wheeled Comments/Gait Description Normal pace and pattern, required sitting break [facility] through ambulation d/t fatigue Balance Sitting Static: Normal Sitting Dynamic: Normal Standing Static: Normal Standing Dynamic: Normal Assessment/Needs Patient demonstrated good strength of LE with testing and ambulation. Patient ambulated 400' without assistance with 4WW with a rest break. Patient report a little SOB and chest tightness at conclusion of ambulation, which was recovered with a few deep breaths and she noted this was fairly normal when sick or with activity. Rehab Potential: Good PT Plan Treatment/Plan Treatment Plan: Discontinue PT Time/GCodes Time In: 909 Time Out: 923 Total Billed Treatment Time: 14 Total Billed Treatment 1 visit EVL 14min GABBIE ORTEGA PT Feb 19, 2019 10:03 POS
--- NOTE | 2019-02-19 10:34 | Occ Therapy Progress Note ---
Therapy Progress Note OT orders received. OT spoke with pt and pt's who both expressed no concerns at this time with ADLs/functional mobility at this time. Both report pt is at her PLOF. Pt completed toileting, handwashing and returned to recliner during visit, no concerns noted. No skilled OT services indicated at this time secondary to pt being at PLOF. 1, visit SOPHY CHONG OT Feb 19, 2019 10:34 POS
--- NOTE | 2019-02-19 10:59 | NUR ---
SPOKE WITH THE PATIENT WHO STATES SHE HAD A LIST OF MEDICATIONS WITH HER AND WENT OVER IT WITH THE NURSE. SHE GETS HER MEDS THROUGH [facility] IN [place] AT . I CALLED THEM AND LEFT A MESSAGE TO ASK THEM TO SEND ME A MEDICATION LIST HOWEVER THE PATIENT WAS CONFIDENT HER LIST WAS ACCURATE. IF I RECEIVE THE LIST PRIOR TO THE PATIENT DISCHARGING I WILL CHECK IT FOR ANY DISCREPANCIES AND UPDATED IF NEEDED. Addendum: 02/19/19 at 1411 by CROW HARDY [facility] RECEIVED THE FAX AT THIS TIME HOWEVER THE PATIENT IS ALREADY DISCHARGED. THE FOLLOWING MEDICATIONS WERE ON THE LIST THAT WAS FAXED OVER THAT WERE NOT ON THE MED REC: VITAMIN D3 50,000 UNITS MONTHLY CLARITIN 10MG DAILY DIABETIC TUSSIN DM 10ML Q4HPRN EPIPEN PRN FAMOTIDINE 20MG DAILY (WE HAD RANITIDINE ON THE MED REC INSTEAD) GLUCAGEN KIT PRN DUONEB BID AND Q4H PRN MELOXICAM 7.5MG DAILY NYSTOP POWDER BID PRN SPIRIVA HANDIHALER DAILY TRADJENTA 5MG DAILY VENTOLIN PRN ANGUS OXIDE PRN
[2019-02-19 11:48] VITALS: BP 145/69
[2019-02-19] MEDS ORDERED: CEPH-507 PO (11:54)
[2019-02-19] MEDS ORDERED: AZIT250T12 PO (11:54)
--- NOTE | 2019-02-19 11:55 | Discharge Inst-Simple/Standard ---
Discharge Inst-Standard Reconcile Patient Problems Problems Reviewed?: Yes Discharge Medications New, Converted or Re-Newed RX: Transmitted to Pharmacy Patient Instructions/Follow Up Plan of Care/Instructions/FU: Please continue to take your medications as written. Please follow up with your PCP in the next week to follow up this hospital stay. Activity as Tolerated: Yes Discharge Diet: ADA Diet Return to The Hospital For: Chest pain, cough, low oxygen levels, fever, if you feel like you are worsening. ANG MARTIN MD Feb 19, 2019 11:55 POS
--- OUTSIDE RECORDS SUMMARY | 2019-03-13 05:23 | XMS REPORT | Continuity of Care Document ---
Author Organization Unknown POS Address Unknown SP Phone Unavailable SP Allergies Active Description Code Type Severity POS Reaction Onset Reported/Identified POS to Patient Clinical Status POS Yes iodine [id number] Drug Allergy SP N/A 02/18/2019 SP Yes latex [id number] Drug Allergy SP N/A 02/18/2019 SP Medications There is no data. Problems Date Dx Coded Attending Type Code POS Diagnosed By POS 02/19/2019 DRE SHAVER, LUIS MIGUEL Marroquin Ot E11. 65 SP 2 DIABETES MELLITUS WITH HYPERGLYCE SP 02/19/2019 DRE SHAVER, LUIS MIGUEL Marroquin Ot E66. 9 SP UNSPECIFIED SP 02/19/2019 DRE SHAVER, LUIS MIGUEL Marroquin Ot E78. 00 SP HYPERCHOLESTEROLEMIA, UNSPECIFIED SP 02/19/2019 DRE SHAVER, LUIS MIGUEL Marroquin Ot E78. 5 SP UNSPECIFIED SP 02/19/2019 DRE SHAVER, LUIS MIGUEL Marroquin Ot E83. 42 SP SP 02/19/2019 LUIS MIGUEL ERICKSON MD Ot E87. 2 SP SP 02/19/2019 DRE SHAVER, LUIS MIGUEL Marroquin Ot F32. 9 SP DEPRESSIVE DISORDER, SINGLE EPISOD SP 02/19/2019 DRE SHAVER, LUIS MIGUEL Marroquin Ot F41. 9 SP DISORDER, UNSPECIFIED SP 02/19/2019 DRE SHAVER, LUIS MIGUEL Marroquin Ot G47. 30 SP APNEA, UNSPECIFIED SP 02/19/2019 LUIS MIGUEL ERICKSON MD Ot G89. 29 SP CHRONIC PAIN SP 02/19/2019 DRE SHAVER, LUIS MIGUEL Marroquin Ot I10 SP (PRIMARY) HYPERTENSION SP 02/19/2019 LUIS MIGUEL ERICKSON MD Ot J18. 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 9 SPESOPHAGEAL REFLUX DISEASE WITHOUT SP 02/19/2019 LUIS MIGUEL ERICKSON MD Ot M54. 9 SP UNSPECIFIED SP 02/19/2019 LUIS MIGUEL ERICKSON MD Ot N39. 0 SP TRACT INFECTION, SITE NOT SPECIF SP 02/19/2019 LUIS MIGUEL ERICKSON MD Ot T38.0X5A SP ADVERSE EFFECT OF GLUCOCORT/SYNTH ANALOG SP 02/19/2019 LUIS MIGUEL ERICKSON MD Ot Z68. 39 SP MASS INDEX (BMI) 39.0-39.9, ADULT SP 02/19/2019 LUIS MIGUEL ERICKSON MD Ot Z79. 4 SP TERM (CURRENT) USE OF INSULIN SP 02/19/2019 LUIS MIGUEL ERICKSON MD Ot Z87.891 SP PERSONAL HISTORY OF NICOTINE DEPENDENCE SP Procedures There is no data. Results Test Result Range POS Complete blood count (CBC) with automate d white blood cell (WBC) differential - POS 00:35 Blood leukocytes automated count (number/volume) 6.4 10*3/uL POS 4.3-11.0 SP Blood erythrocytes automated count (number/volume) 3.68 10*6/uL SP 4.35-5.85 SP Venous blood hemoglobin measurement (mass/volume) 11.0 g/dL SP16.0 Blood hematocrit (volume fraction) 34 % 35-52 SP Automated erythrocyte mean corpuscular volume 93 [ foz_us] SP99 Automated erythrocyte mean corpuscular h emoglobin (mass per erythrocyte) SP 30 pg 25-34 SP Automated erythrocyte mean corpuscular h emoglobin concentration measurement SP 32 g/dL 32-36 SP Automated erythrocyte distribution width ratio 13. 5 % 10.0- SP Automated blood platelet count (count/volume) 120 10*3/uL SP400 Automated blood platelet mean volume measurement 10.8 [foz_us] SP 7.4-10.4 SP Automated blood neutrophils/100 leukocytes 73 % 42-75 SP Automated blood lymphocytes/100 leukocytes 17 % 12-44 SP Blood monocytes/100 leukocytes 6 % 0-12 SP Automated blood eosinophils/100 leukocytes 5 % 0-10 SP Automated blood basophils/100 leukocytes 0 % 0-10 SP Blood neutrophils automated count (number/volume) 4.6 10*3 SP7.8 Blood lymphocytes automated count (number/volume) 1.1 10*3 SP4.0 Blood monocytes automated count (number/volume) 0. 4 10*3 SP1.0 Automated eosinophil count 0.3 10*3/uL 0 .0-0.3 SP Automated blood basophil count (count/volume) 0.0 10*3/uL SP0.1 PT panel in platelet poor plasma by coag ulation assay - 02/18/19 00:35 POS Prothrombin time (PT) in platelet poor plasma by coagu lation assay SP s 12.2-14.7 SP INR in platelet poor plasma or blood by coagulation as say 1.1 SP 0.8-1.4 SP Activated partial thromboplastin time (a PTT) in platelet poor plasma POS assay - 02/18/19 00:35 Activated partial thromboplastin time (a PTT) in platelet poor plasma POS assay 28 s 24-35 SP Blood lactic acid measurement (moles/vol ume) - 02/18/19 00:35 POS Blood lactic acid measurement (moles/volume) 2.30 mmol/L SP2.00 Streptococcus pyogenes antigen detection - 02/18/19 00:35 POS Streptococcus pyogenes antigen detection NEGATIVE NEGATIVE SP Comprehensive metabolic panel - 02/18/19 00:35 POS Serum or plasma sodium measurement (moles/volume) 139 mmol/L SP 135-145 SP Serum or plasma potassium measurement (moles/volume) 4.0 mmol/L SP 3.6-5.0 SP Serum or plasma chloride measurement (moles/volume) 98 mmol/L SP 98-107 SP Carbon dioxide 28 mmol/L 21-32 SP Serum or plasma anion gap determination (moles/volume) 13 mmol/L SP 5-14 SP Serum or plasma urea nitrogen measurement (mass/volume ) 19 mg/dL SP 7-18 SP Serum or plasma creatinine measurement (mass/volume) 1.23 mg/dL SP 0.60-1.30 SP Serum or plasma urea nitrogen/creatinine mass ratio 15 NRG SP Serum or plasma creatinine measurement w ith calculation of estimated glomerular SP rate 42 NRG SP Serum or plasma glucose measurement (mass/volume) 376 mg/dL SP105 Serum or plasma calcium measurement (mass/volume) 8.7 mg/dL SP10.1 Serum or plasma total bilirubin measurement (mass/volu me) 0.4 mg/dL SP 0.1-1.0 SP Serum or plasma alkaline phosphatase sb surement (enzymatic activity/volume) SP 86 U/L 40-136 SP Serum or plasma aspartate aminotransfera se measurement (enzymatic SP 25 U/L 5-34 SP Serum or plasma alanine aminotransferase measurement (enzymatic activity/volume) SP 19 U/L 0-55 SP Serum or plasma protein measurement (mass/volume) 6.4 g/dL SP8.2 Serum or plasma albumin measurement (mass/volume) 3.7 g/dL SP4.5 CALCIUM CORRECTED 8.9 mg/dL 8.5-10.1 SP Magnesium - 02/18/19 00:35 POS Magnesium 1.3 mg/dL 1.6-2.4 SP Influenza virus A and B antigen detectio n - 02/18/19 00:35 POS FLU RESULT NEGATIVE FOR INFLUENZA A AND B ANTIGENS BY IA SP Serum or plasma lithium measurement (mol es/volume) - 02/18/19 00:35 POS BNP PT 63.6 pg/mL <100.0 SP Bacterial blood culture - 02/18/19 00:35 POS Bacterial blood culture NG NRG SP Bacterial throat culture - 02/18/19 00:3 5 POS Bacterial throat culture NBS NRG SP Capillary blood glucose measurement by g lucometer (mass/volume) - 02/18/19 00:57 POS Capillary blood glucose measurement by glucometer (mas s/volume) 339 POS 70-110 SP Bacterial blood culture - 02/18/19 00:59 POS Bacterial blood culture NG NRG SP Complete urinalysis with reflex to cultu re - 02/18/19 01:19 POS Urine color determination RAQUEL NRG SP Urine clarity determination CLEAR NR G SP Urine pH measurement by test strip 8 5-9 SP Specific gravity of urine by test strip 1.010 1.016-1.022 SP Urine protein assay by test strip, semi-quantitative 1+ SP Urine glucose detection by automated test strip 4+ NEGATIVE SP Erythrocytes detection in urine sediment by light micr oscopy 5+ SP NEGATIVE SP Urine ketones detection by automated test strip 1+ NEGATIVE SP Urine nitrite detection by test strip NEGATIVE NEGATIVE SP Urine total bilirubin detection by test strip NEGA TIVE SP Urine urobilinogen measurement by automated test strip (mass/volume) SP NORMAL SP Urine leukocyte esterase detection by dipstick 2+ NEGATIVE SP Automated urine sediment erythrocyte cou nt by microscopy (number/high power SP [HPF] NRG SP Automated urine sediment leukocyte count by microscopy (number/high power field) SP [HPF] NRG SP Bacteria detection in urine sediment by light microsco py TRACE SP NRG SP Squamous epithelial cells detection in u rine sediment by light microscopy SP 0-2 NRG SP Crystals detection in urine sediment by light microsco py NONE SP NRG SP Casts detection in urine sediment by light microscopy NONE SP Mucus detection in urine sediment by light microscopy NEGATIVE SP NRG SP Complete urinalysis with reflex to culture CULTURE PENDING SP Bacterial urine culture - 02/18/19 01:19 POS Bacterial urine culture [id number] NRG SP COLONY COUNT >100,000/ML NRG SP FTX;REPORTABLE SUSCEPTIBILITY REPORTED 02/20/19 11: 50 NRG SP Dirithromycin susceptibility test by dis k diffusion - 02/18/19 01:19 POS Gentamicin susceptibility test by minimum inhibitory c oncentration <= SP NRG SP Trimethoprim/sulfamethoxazole susceptibi lity test by minimum SP <= NRG SP Levofloxacin susceptibility test by minimum inhibitory concentration SP NRG SP Ampicillin susceptibility test by minimum inhibitory c oncentration > SP NRG SP Cefazolin susceptibility test by minimum inhibitory co ncentration 2 SP NRG SP Ceftriaxone susceptibility test by minimum inhibitory concentration <= SP NRG SP Ciprofloxacin susceptibility test by minimum inhibitor y concentration SP NRG SP Meropenem susceptibility test by minimum inhibitory co ncentration <= SP NRG SP Nitrofurantoin susceptibility test by mi nimum inhibitory concentration SP <= NRG SP Amoxicillin and clavulanate potassium susc SNOW <= NRG SP Capillary blood glucose measurement by g lucometer (mass/volume) - 02/18/19 01:47 POS Capillary blood glucose measurement by glucometer (mas s/volume) 183 POS 70-110 SP Serum or plasma lactate measurement (mol es/volume) - 02/18/19 01:55 POS Serum or plasma lactate measurement (moles/volume) 2.29 mmol/L SP 0.50-2.00 SP Complete blood count (CBC) with automate d white blood cell (WBC) differential - POS 05:27 Blood leukocytes automated count (number/volume) 5.8 10*3/uL POS 4.3-11.0 SP Blood erythrocytes automated count (number/volume) 3.52 10*6/uL SP 4.35-5.85 SP Venous blood hemoglobin measurement (mass/volume) 10.5 g/dL SP16.0 Blood hematocrit (volume fraction) 33 % 35-52 SP Automated erythrocyte mean corpuscular volume 93 [ foz_us] SP99 Automated erythrocyte mean corpuscular h emoglobin (mass per erythrocyte) SP 30 pg 25-34 SP Automated erythrocyte mean corpuscular h emoglobin concentration measurement SP 32 g/dL 32-36 SP Automated erythrocyte distribution width ratio 13. 7 % 10.0- SP Automated blood platelet count (count/volume) 119 10*3/uL SP400 Automated blood platelet mean volume measurement 10.7 [foz_us] SP 7.4-10.4 SP Automated blood neutrophils/100 leukocytes 61 % 42-75 SP Automated blood lymphocytes/100 leukocytes 26 % 12-44 SP Blood monocytes/100 leukocytes 8 % 0-12 SP Automated blood eosinophils/100 leukocytes 5 % 0-10 SP Automated blood basophils/100 leukocytes 0 % 0-10 SP Blood neutrophils automated count (number/volume) 3.5 10*3 SP7.8 Blood lymphocytes automated count (number/volume) 1.5 10*3 SP4.0 Blood monocytes automated count (number/volume) 0. 5 10*3 SP1.0 Automated eosinophil count 0.3 10*3/uL 0 .0-0.3 SP Automated blood basophil count (count/volume) 0.0 10*3/uL SP0.1 Comprehensive metabolic panel - 02/18/19 05:27 POS Serum or plasma sodium measurement (moles/volume) 141 mmol/L SP 135-145 SP Serum or plasma potassium measurement (moles/volume) 3.6 mmol/L SP 3.6-5.0 SP Serum or plasma chloride measurement (moles/volume) 102 mmol/L SP 98-107 SP Carbon dioxide 28 mmol/L 21-32 SP Serum or plasma anion gap determination (moles/volume) 11 mmol/L SP 5-14 SP Serum or plasma urea nitrogen measurement (mass/volume ) 15 mg/dL SP 7-18 SP Serum or plasma creatinine measurement (mass/volume) 1.00 mg/dL SP 0.60-1.30 SP Serum or plasma urea nitrogen/creatinine mass ratio 15 NRG SP Serum or plasma creatinine measurement w ith calculation of estimated glomerular SP rate 54 NRG SP Serum or plasma glucose measurement (mass/volume) 211 mg/dL SP105 Serum or plasma calcium measurement (mass/volume) 8.3 mg/dL SP10.1 Serum or plasma total bilirubin measurement (mass/volu me) 0.3 mg/dL SP 0.1-1.0 SP Serum or plasma alkaline phosphatase sb surement (enzymatic activity/volume) SP 71 U/L 40-136 SP Serum or plasma aspartate aminotransfera se measurement (enzymatic SP 22 U/L 5-34 SP Serum or plasma alanine aminotransferase measurement (enzymatic activity/volume) SP 18 U/L 0-55 SP Serum or plasma protein measurement (mass/volume) 6.0 g/dL SP8.2 Serum or plasma albumin measurement (mass/volume) 3.6 g/dL SP4.5 CALCIUM CORRECTED 8.6 mg/dL 8.5-10.1 SP PROCALCITONIN (PCT) - 02/18/19 05:27 POS PROCALCITONIN (PCT) 0.14 ng/mL <0.10 SP Capillary blood glucose measurement by g lucometer (mass/volume) - 02/18/19 11:19 POS Capillary blood glucose measurement by glucometer (mas s/volume) 479 POS 70-110 SP Capillary blood glucose measurement by g lucometer (mass/volume) - 02/18/19 15:46 POS Capillary blood glucose measurement by glucometer (mas s/volume) 473 POS 70-110 SP Capillary blood glucose measurement by g lucometer (mass/volume) - 02/18/19 21:06 POS Capillary blood glucose measurement by glucometer (mas s/volume) 429 POS 70-110 SP Whole blood basic metabolic panel - 08/04 05:05 POS Serum or plasma sodium measurement (moles/volume) 138 mmol/L SP 135-145 SP Serum or plasma potassium measurement (moles/volume) 4.8 mmol/L SP 3.6-5.0 SP Serum or plasma chloride measurement (moles/volume) 103 mmol/L SP 98-107 SP Carbon dioxide 23 mmol/L 21-32 SP Serum or plasma anion gap determination (moles/volume) 12 mmol/L SP 5-14 SP Serum or plasma urea nitrogen measurement (mass/volume ) 12 mg/dL SP 7-18 SP Serum or plasma creatinine measurement (mass/volume) 1.03 mg/dL SP 0.60-1.30 SP Serum or plasma urea nitrogen/creatinine mass ratio 12 NRG SP Serum or plasma creatinine measurement w ith calculation of estimated glomerular SP rate 52 NRG SP Serum or plasma glucose measurement (mass/volume) 345 mg/dL SP105 Serum or plasma calcium measurement (mass/volume) 8.5 mg/dL SP10.1 Magnesium - 02/19/19 05:05 POS Magnesium 2.5 mg/dL 1.6-2.4 SP Blood lactic acid measurement (moles/vol ume) - 02/19/19 05:05 POS Blood lactic acid measurement (moles/volume) 2.15 mmol/L SP2.00 Capillary blood glucose measurement by g lucometer (mass/volume) - 02/19/19 05:26 POS Capillary blood glucose measurement by glucometer (mas s/volume) 329 POS 70-110 SP Serum or plasma lactate measurement (mol es/volume) - 02/19/19 07:28 POS Serum or plasma lactate measurement (moles/volume) 1.98 mmol/L SP 0.50-2.00 SP Capillary blood glucose measurement by g lucometer (mass/volume) - 02/19/19 10:59 POS Capillary blood glucose measurement by glucometer (mas s/volume) 337 POS 70-110 SP Encounters ACCT No. Visit Date/Time Discharge Status POS Pt. Type Provider Facility Loc./Un it POS Complaint POS [id number] 02/18/2019 01:25:00 019 12:05:00 SP DIS Inpatient DRE SHAVER, LUIS MIGUEL PLATA [facility] 4TH HYPOMAGNESEMIA; PNEUMONIA; C OPD; IDDM- SP
--- OUTSIDE RECORDS SUMMARY | 2019-03-13 05:35 | XMS REPORT | Continuity of Care Document ---
Author Organization Unknown POS Address Unknown SP Phone Unavailable SP Allergies Active Description Code Type Severity POS Reaction Onset Reported/Identified POS to Patient Clinical Status POS Yes iodine [id number] Drug Allergy SP N/A 02/18/2019 SP Yes latex [id number] Drug Allergy SP N/A 02/18/2019 SP Medications [...] - 02/18/19 01:19 POS Bacterial urine culture [id number] NRG SP COLONY COUNT >100,000/ML NRG SP [...] Provider Facility Loc./Un it POS Complaint POS [id number] 02/18/2019 01:25:00 019 12:05:00 SP DIS Inpatient DRE SHAVER, LUIS MIGUEL PLATA [facility] 4TH HYPOMAGNESEMIA; PNEUMONIA; C OPD; IDDM- SP
== END 2019-02-19 12:05 | disposition home or self-care (01) | DRG 194 ==
LOC: ER 00:25 → 4TH 01:25
PROVIDERS: ADMIT Internal Medicine; ATTEND Internal Medicine
DX: J18.9 Pneumonia, unspecified organism (principal); J44.0 Chronic obstructive pulmonary disease with (acute) lower respiratory infection; N39.0 Urinary tract infection, site not specified; E87.2 Acidosis; E11.65 Type 2 diabetes mellitus with hyperglycemia; E83.42 Hypomagnesemia; G47.30 Sleep apnea, unspecified; M54.9 Dorsalgia, unspecified; G89.29 Other chronic pain; F41.9 Anxiety disorder, unspecified; F32.9 Major depressive disorder, single episode, unspecified; K21.9 Gastro-esophageal reflux disease without esophagitis; I10 Essential (primary) hypertension; E78.00 Pure hypercholesterolemia, unspecified; E66.9 Obesity, unspecified; Z68.39 Body mass index [BMI] 39.0-39.9, adult; E78.5 Hyperlipidemia, unspecified; Z79.4 Long term (current) use of insulin; T38.0X5A Adverse effect of glucocorticoids and synthetic analogues, initial encounter; Z87.891 Personal history of nicotine dependence
CPT/HCPCS: 36415; 71046; 80048; 80053; 81000; 82962; 83605; 83735; 83880; 84145; 85025; 85610; 85730; 87040; 87077; 87088; 87186; 87430; 87804; 93005; 93041; 94640; 94664; 94760; 96372; 96374; 96375